=== PATIENT | female | born 1990 | race Asian ===

== ENCOUNTER 2025-11-04 20:05 | Emergency (ER) | payer MEDICAID ==
[~2025-11-04] VITALS: Ht 160 cm; Wt 74.8 kg
[2025-11-04 20:20] VITALS: TEMP 99.8
[2025-11-04] MEDS ORDERED: KETO10TA2 PO (20:40)
[2025-11-04] MEDS ORDERED: CYCL5TAB PO (20:40)
[2025-11-04] MEDS: CYCLOBENZAPRINE 10 MG TABLET PO ONE (21:06)
[2025-11-04] MEDS: IBUPROFEN 400 MG TABLET PO ONE (21:06)
[2025-11-04 21:11] VITALS: BP 120/75; O2SAT 98
== END 2025-11-04 20:41 | disposition home or self-care (01) ==
LOC: ER 20:09
DX: M54.6 Pain in thoracic spine (principal); V43.52XA Car driver injured in collision with other type car in traffic accident, initial encounter; Y93.89 Activity, other specified; Y92.410 Unspecified street and highway as the place of occurrence of the external cause; Y99.8 Other external cause status